=== PATIENT | male | born 1955 | race Caucasian/White ===

== ENCOUNTER 2019-09-14 07:29 | Outpatient (CLI) | payer OTHER, SELFPAY ==
--- NOTE | ~2019-09-14 | XR_ITS ---
EXAMINATION: XR chest 2V DATE: 09/14/2019 08:16 INDICATION: COPD and shortness of breath for preoperative evaluation. TECHNIQUE: PA and lateral views of the chest were obtained. COMPARISON: None FINDINGS: Emphysema with hyperexpansion of lungs, increased retrosternal clear space, flattening of the diaphra gm and scattered increased lucency with architectural distortion. Approximately 1.6 cm high attenuati on lingular nodule consistent with calcification with additional more dense central calcification con sistent with old granulomatous disease. No other airspace opacities, pulmonary edema, pleural effusio n or pneumothorax. Heart size is normal. Tortuous thoracic aorta. Mild thoracic kyphosis and mild lev ocurvature with mild spondylosis. IMPRESSION: 1. Emphysema. No acute cardiopulmonary disease. Reviewed, dictated and finalized at location D.
--- NOTE | ~2019-09-14 | US_ITS ---
EXAMINATION: US aorta DATE: 09/14/2019 08:18 INDICATION: Abdominal aortic aneurysm TECHNIQUE: Grayscale, color Doppler, and pulsed Doppler images of the aorta and common iliac arteries were obtained. COMPARISON: None. FINDINGS: The proximal aorta is poorly visualized but measures approximately 2.3 cm AP. The mid aorta measures 2.1 cm. Fusiform distal aortic aneurysm measuring up to 3.8 cm tapering to 1.7 cm at the bifurcation. The right common iliac artery measures 1.2 cm. The left common iliac artery measures 1.1 cm. IMPRESSION: 1. 3.8 cm fusiform infrarenal abdominal aortic aneurysm. Reviewed, dictated and finalized at location D.
== END 2019-09-14 07:30 | disposition home or self-care (01) ==
PROVIDERS: PCP Physician Assistant; Visit Provider Physician Assistant
DX: I71.4 Abdominal aortic aneurysm, without rupture (principal); Z01.818 Encounter for other preprocedural examination; J43.9 Emphysema, unspecified
CPT/HCPCS: 71046; 76775

== ENCOUNTER 2019-09-17 07:41 | Outpatient (CLI) | payer OTHER, SELFPAY ==
--- NOTE | 2019-09-17 | EST_ITS ---
Patient Info Name: Alec Abad Age: 63 years : 1955 Gender: Male Ht: 70 in Wt: 158 lbs BSA: 1.88 m2 Exam Date: 09/17/2019 9:00 AM Exam Location: [facility] Stress Patient Status: Outpatient Admit Date: 09/17/2019 Staff Ordering Physician: Trent, Rashida MUNROE Attending Provider: Trent, Rashida MUNROE Exercise Technologist: Medina Clark RDCS Nurse: Belen Fernandez, ANP, ACNP-BC Exam Type: CA stress sim w NM Study Info Indications Z01.818 - Encounter for other preprocedural examination R94.31 - Abnormal electrocardiogram ECG EKG A regadenoson stress test was performed. Summary 1. Normal sinus rhythm. 2. Nonspecific T-wave changes. 3. Nonspecific inferolateral T-wave inversion seen with Lexiscan injection. 4. Clinically and electrocardiographically uneventful Lexiscan stress test. 5. Myocardial perfusion imaging exam to be dictated by the Radiology Department. Protocol: Lexiscan Stress ECG Details Stage: REST Duration (min): 9 min : 38 sec HR (bpm): 68 SBP (mmHg): 152 DBP (mmHg): 110 Stage: REST Duration (min): 20 min : 34 sec HR (bpm): 62 SBP (mmHg): 152 DBP (mmHg): 110 Stage: STAGE 1 Duration (min): 1 min : 0 sec HR (bpm): 91 SBP (mmHg): 152 DBP (mmHg): 110 Stage: RECOVERY Duration (min): 1 min : 0 sec HR (bpm): 98 SBP (mmHg): 184 DBP (mmHg): 107 Stage: RECOVERY Duration (min): 2 min : 0 sec HR (bpm): 94 SBP (mmHg): 184 DBP (mmHg): 107 Stage: RECOVERY Duration (min): 3 min : 0 sec HR (bpm): 84 SBP (mmHg): 172 DBP (mmHg): 103 Stage: RECOVERY Duration (min): 4 min : 0 sec HR (bpm): 87 SBP (mmHg): 172 DBP (mmHg): 103 Stage: RECOVERY Duration (min): 4 min : 35 sec HR (bpm): 88 SBP (mmHg): 180 DBP (mmHg): 100 Rest HR: 62 bpm Peak HR: 98 bpm Rest Sys BP: 152 mmHg Peak Sys BP: 184 mmHg Max Pred HR: 158 bpm % Max Pred HR: 62 % Target HR: 134 bpm Max RPP: 18,032 bpm*mmHg BP Response: Normal blood pressure response Termination Reason: Completed protocol Cardiac Symptoms: None Total Time: 1 min : 0 sec Rest Bonilla BP: 110 mmHg Peak Bonilla BP: 107 mmHg Total Dose: 0.4 mg Resting ECG Normal sinus rhythm. Nonspecific T-wave changes. Stress ECG Nonspecific inferolateral T-wave inversion seen with Lexiscan injection. Arrhythmias None. Report Signatures
--- NOTE | ~2019-09-17 | NM_ITS ---
EXAMINATION: NM sim stress w perfusion DATE: 09/17/2019 10:28 INDICATION: Abnormal electrocardiogram. TECHNIQUE: Rest images were obtained following intravenous administration of 10.75 mCi Tc99m tetrofos min (Myoview). The patient was infused intravenously with Lexiscan (regadenoson). Then, 31.3 mCi Tc99 m tetrofosmin (Myoview) was administered intravenously, and stress images were obtained. Data was rec onstructed into short axis and horizontal and vertical long axis SPECT images. Gated SPECT images wer e also obtained. COMPARISON: None. FINDINGS: There is no definite reversible or fixed perfusion abnormality to suggest ischemia or infar ction. There is no segmental wall motion abnormality. Left ventricular ejection fraction measures 6 7%. IMPRESSION: 1. No definite ischemia or infarct. 2. Normal left ventricular ejection fraction measuring 67%. Reviewed, dictated and finalized at location A.
== END 2019-09-17 07:42 | disposition home or self-care (01) ==
PROVIDERS: PCP Physician Assistant; Visit Provider Physician Assistant
DX: R94.31 Abnormal electrocardiogram [ECG] [EKG] (principal)
CPT/HCPCS: 78452; 93017; A9502; J2785

== ENCOUNTER 2019-11-14 12:57 | Outpatient (CLI) | payer OTHER, SELFPAY ==
--- NOTE | 2019-11-14 | ECG_ITS ---
Measurements Intervals [place] Rate: 77 P: 67 SC: 133 QRS: 54 QRSD: 92 T: 84 QT: 393 QTc: 447 Interpretive Statements SINUS RHYTHM WITH SINUS ARRHYTHMIA INCOMPLETE RIGHT BUNDLE BRANCH BLOCK NONSPECIFIC ST & T-WAVE ABNORMALITY- INF/LAT LEADS BORDERLINE ECG Electronically Signed On 11-14-2019 13:57:41 CDT by Omar Guzman D.O.
== END 2019-11-14 12:58 | disposition home or self-care (01) ==
DX: Z01.810 Encounter for preprocedural cardiovascular examination (principal); M48.02 Spinal stenosis, cervical region
CPT/HCPCS: 93005